=== PATIENT | female | born 1995 | race Caucasian/White ===

== ENCOUNTER 2019-01-30 21:28 | Emergency (ER) | payer OTHER ==
[2019-01-30] MEDS ORDERED: Lidocaine 2% 20 ML MDV INFILT ONE (21:29)
--- NOTE | 2019-01-30 22:00 | EDM.PDOC ---
ED HPI GENERAL MEDICAL PROBLEM - General Chief Complaint: Laceration Stated Complaint: FACIAL LACERATION Time Seen by Provider: 01/30/19 21:40 Source of Information: Reports: Patient History Limitations: Reports: No Limitations - History of Present Illness INITIAL COMMENTS - FREE TEXT/NARRATIVE: Angelique comes into PSYCHIATRIC ED with a minor laceration to the forehead that occurred within the hour when her pet dog jumped up onto her, and the rope attached to the collar brushed against her face. There is minor bleeding. Her tetanus vax status is current. - Related Data Allergies Allergy/AdvReac Type Severity Reaction Status Date / Time amoxicillin [From Augmentin] Allergy Cannot Verified 01/30/19 21:52 Remember clavulanic acid Allergy Cannot Verified 01/30/19 21:52 [From Augmentin] Remember Sulfa (Sulfonamide Allergy Cannot Verified 01/30/19 21:52 Antibiotics) Remember Home Meds: Home Meds Topiramate 25 mg PO ASDIRECTED PRN 01/30/19 [History] ED ROS GENERAL - Review of Systems Review Of Systems: Comprehensive ROS is negative, except as noted in HPI. ED EXAM, SKIN/RASH Exam: See Below Exam Limited By: No Limitations General Appearance: Alert, WD/WN, No Apparent Distress Eye Exam: Bilateral Eye: EOMI, Normal Inspection, PERRL Ears: Normal External Exam Nose: Normal Inspection Throat/Mouth: Normal Inspection, Normal Oropharynx Head: Normocephalic, Other (1.3 cm laceration above medial eyebrow L forhead) Neck: Normal Inspection Respiratory/Chest: Lungs Clear Cardiovascular: Regular Rate, Rhythm Extremities: Normal Inspection Neurological: Alert, Oriented, CN II-XII Intact, Normal Cognition, No Motor/ Sensory Deficits Psychiatric: Normal Affect, Normal Mood Skin: Warm, Dry, Normal Color, Wound/Incision (1.3 linear laceration above L eyebrow) ED SKIN PROCEDURES - Laceration/Wound Repair Left Medial Forehead Appearance: Subcutaneous Distal NVT: Neuro & Vascular Intact Anesthetic Type: Local Local Anesthesia - Lidocaine (Xylocaine): 2% Plain Local Anesthetic Volume: 2cc Exploration/Debridement/Repair: Wound Explored, No Foreign Material Found Closed with: Sutures Lac/Wound length In cm: 1.3 Suture Size: 5-0 # of Sutures: 3 Suture Type: Nylon, Interrupted Sterile Dressing Applied: Nurse Tetanus Status Addressed: Yes Complications: No Course - Vital Signs Text/Narrative:: Patient tolerated procedure well. Departure - Departure Time of Disposition: 22:00 Disposition: Home, Self-Care 01 Condition: Good Clinical Impression: Forehead laceration Qualifiers: Encounter type: initial encounter Qualified Code(s): S01.81XA - Laceration without foreign body of other part of head, initial encounter - Discharge Information *PRESCRIPTION DRUG MONITORING PROGRAM REVIEWED*: Not Applicable *COPY OF PRESCRIPTION DRUG MONITORING REPORT IN PATIENT LUIS F: Not Applicable Referrals: Vern Maynard MD [Primary Care Provider] - - Problem List & Annotations (1) Forehead laceration SNOMED Code(s): 956132424 Code(s): S01.81XA - LACERATION W/O FOREIGN BODY OF OTH PART OF HEAD, INIT ENCNTR Status: Acute Current Visit: Yes Annotation/Comment:: I discussed routine wound cares, analgesic of choice, and follow up SR in 6-7 days. Qualifiers: Encounter type: initial encounter Qualified Code(s): S01.81XA - Laceration without foreign body of other part of head, initial encounter - Problem List Review Problem List Initiated/Reviewed/Updated: Yes - Assessment/Plan Plan: Follow up SR in 6-7 days.
== END 2019-01-30 21:57 | disposition home or self-care (01) ==
LOC: FB.ED 21:28
DX: S01.81XA Laceration without foreign body of other part of head, initial encounter (principal); Z88.0 Allergy status to penicillin; Z88.2 Allergy status to sulfonamides; W24.0XXA Contact with lifting devices, not elsewhere classified, initial encounter
CPT/HCPCS: 12011; 99282-25; J2001

== ENCOUNTER 2022-05-17 05:21 | Emergency (ER) | payer BC, OTHER ==
[2022-05-17] MEDS ORDERED: Sodium Chloride 0.9% 1,000 ML IV ONE (06:25)
[2022-05-17] MEDS ORDERED: diphenhydrAMINE 50 MG/ML SDV IVPUSH ONE (06:25)
[2022-05-17] MEDS ORDERED: Ketorolac 30 MG/ML SDV IVPUSH ONE (06:25)
[2022-05-17] MEDS ORDERED: Sodium Chloride 0.9% 10 ML Syringe FLUSH PRN (06:25)
[2022-05-17] MEDS ORDERED: Prochlorperazine 10 MG/2 ML SDV IVPUSH ONE (06:25)
[2022-05-17 06:36] LABS: ESTIMATED GFR 91 mL/min (>60)
== END 2022-05-17 07:50 | disposition home or self-care (01) ==
LOC: FB.ED 05:21
DX: E86.0 Dehydration (principal); R51.9 Headache, unspecified; J45.909 Unspecified asthma, uncomplicated; Z72.0 Tobacco use; Z88.0 Allergy status to penicillin; Z88.1 Allergy status to other antibiotic agents; Z88.2 Allergy status to sulfonamides; Z79.899 Other long term (current) drug therapy
CPT/HCPCS: 36415; 80053; 83735; 85025; 96361; 96374; 96375; 99283; 99284-25; J0780; J1200; J1885; J3490; J7030

== ENCOUNTER 2024-05-26 19:58 | Emergency (ER) | payer BC, OTHER ==
[2024-05-26] MEDS: Ketorolac 30 MG/ML SDV IM ONE (20:28)
[2024-05-26] MEDS: hydrOXYzine HCl 50 MG/ML SDV IM ONE (20:29)
== END 2024-05-26 20:56 | disposition home or self-care (01) ==
LOC: FB.ED 19:58
DX: G43.909 Migraine, unspecified, not intractable, without status migrainosus (principal); G44.89 Other headache syndrome; Z88.0 Allergy status to penicillin; Z88.2 Allergy status to sulfonamides; Z88.1 Allergy status to other antibiotic agents; Z79.899 Other long term (current) drug therapy
CPT/HCPCS: 96372; 99283; J1885; J3410